=== PATIENT | female | born 1960 | race African-American/Black ===

== ENCOUNTER 2018-04-17 07:26 | Emergency (ER) | payer SELFPAY ==
[~2018-04-17] VITALS: Ht 170.2 cm; Wt 75.0 kg
[2018-04-17] MEDS ORDERED: MORPHINE SULFATE 4 MG/ML CPJ (NOT FOR IM USE) IV STA (08:43)
[2018-04-17] MEDS ORDERED: KETOROLAC 30MG/ML VIAL IV ONE (10:00)
[2018-04-17 11:33] VITALS: BP 154/72
== END 2018-04-17 11:50 | disposition short-term general hospital (02) ==
LOC: ER 08:02
DX: S42.252A Displaced fracture of greater tuberosity of left humerus, initial encounter for closed fracture (principal); S42.202A Unspecified fracture of upper end of left humerus, initial encounter for closed fracture; S43.005A Unspecified dislocation of left shoulder joint, initial encounter; F17.200 Nicotine dependence, unspecified, uncomplicated; V19.3XXA Pedal cyclist (driver) (passenger) injured in unspecified nontraffic accident, initial encounter; Y93.55 Activity, bike riding; Y92.9 Unspecified place or not applicable
CPT/HCPCS: 73030; 96374; 96375; 99285; J1885; J2270; A4565